=== PATIENT | female | born 1970 | race Caucasian/White ===

== ENCOUNTER 2018-10-27 14:08 | Emergency (ER) | payer MEDICAID ==
[~2018-10-27] VITALS: Ht 167.6 cm; Wt 65.0 kg
[2018-10-27 14:15] VITALS: BP 144/76; PULSE 76; RESP 20; Ht 167.6 cm; Wt 65.0 kg
--- NOTE | 2018-10-27 15:23 | ERD ---
ER Documentation Chief Complaint Chief Complaint Complains of severe headache x 3 days HPI 40-year-old female presents with history of headache since . States that the headache is been getting worse. States that the headache is positional. In addition states that she has been feeling dizzy and is nauseous but denies throwing up. Does not have any history of headache. States that last night she was unable to talk but only whisper. States that she has some numbness in her face. Denies past medical history. Denies allergies. Had cholecystectomy. Denies social. LMP October 10. ROS All systems reviewed and are negative except as per history of present illness. Medications Home Meds Active Scripts Ibuprofen* (Motrin*) 600 Mg Tab, 600 MG PO Q6 for headache, #30 TAB 0 Refills Prov:RIVERA MADSEN 10/27/18 Allergies Allergies: Coded Allergies: No Known Allergy (Unverified , 10/27/18) PMhx/Soc History of Surgery: Yes (CHOLECYSTECTOMY) Anesthesia Reaction: No Hx Neurological Disorder: No Hx Respiratory Disorders: No Hx Cardiac Disorders: No Hx Psychiatric Problems: No Hx Miscellaneous Medical Probl: No Hx Alcohol Use: No Hx Substance Use: No Hx Tobacco Use: No Smoking Status: Never smoker FmHx Family History: No diabetes, No coronary disease, No other Physical Exam Vitals Vital Signs Date Temp Pulse Resp B/P (MAP) Pulse Ox O2 O2 Flow FiO2 Time Delivery Rate 10/27/18 98.5 76 20 144/76 98 14:15 (98) Physical Exam General: Well developed, well nourished. No acute distress. Head: Atraumatic. No sinus tenderness to palpation. Eyes: No icterus, lesions, injection, or edema. Neck: No lymphadenopathy noted. Tracheal midline, no goiter or nodules noted. No JVD. No meningismus. Heart: RR w/o murmur, rubs, or gallops. Lungs: Clear to auscultation bilaterally w/o wheezes, crackles, rhonchi. Symmetric rise and fall. Equal breath sounds. Abdomen: Soft, nontender, with no rigidity or guarding noted. No masses, lesions, or ecchymoses. Normoactive bowel sounds. No McBurney's point tenderness. Patient ambulatory. No tenderness to palpation in splenic area or splenomegaly. No CVA tenderness. Neuro: CN II through XII intact. Rapid alternating movement intact. No cerebellar or gait deficits. Strength and sensation intact. Alert and oriented x3. Psych: Normal mood and affect. Result Diagram: 10/27/18 1531 10/27/18 1531 Results 24 hrs Laboratory Tests Test 10/27/18 15:31 10/27/18 15:32 White Blood Count 7.1 10^3/ul Red Blood Count 4.62 10^6/ul Hemoglobin 11.4 g/dl Hematocrit 35.7 % Mean Corpuscular Volume 77.3 fl Mean Corpuscular Hemoglobin 24.7 pg Mean Corpuscular Hemoglobin Concent 31.9 g/dl Red Cell Distribution Width 15.7 % Platelet Count 359 10^3/UL Mean Platelet Volume 9.5 fl Immature Granulocytes % 0.300 % Neutrophils % 55.8 % Lymphocytes % 32.9 % Monocytes % 8.6 % Eosinophils % 2.0 % Basophils % 0.4 % Nucleated Red Blood Cells % 0.0 /100WBC Immature Granulocytes # 0.020 10^3/ul Neutrophils # 4.0 10^3/ul Lymphocytes # 2.3 10^3/ul Monocytes # 0.6 10^3/ul Eosinophils # 0.1 10^3/ul Basophils # 0.0 10^3/ul Nucleated Red Blood Cells # 0.0 10^3/ul Erythrocyte Sedimentation Rate 15 mm/Hr Sodium Level 140 mmol/L Potassium Level 4.0 mmol/L Chloride Level 105 mmol/L Carbon Dioxide Level 27 mmol/L Anion Gap 8 Blood Urea Nitrogen 10 mg/dl Creatinine 0.52 mg/dl Est Glomerular Filtrat Rate mL/min > 60 mL/min Glucose Level 99 mg/dl Calcium Level 9.4 mg/dl Total Bilirubin 0.3 mg/dl Direct Bilirubin 0.00 mg/dl Indirect Bilirubin 0.3 mg/dl Aspartate Amino Transf (AST/SGOT) 34 IU/L Alanine Aminotransferase (ALT/SGPT) 33 IU/L Alkaline Phosphatase 96 IU/L Total Protein 7.4 g/dl Albumin 4.1 g/dl Globulin 3.30 g/dl Albumin/Globulin Ratio 1.24 POC Beta HCG, Qualitative NEGATIVE Procedures/MDM DIAGNOSTIC IMAGING REPORT Patient: DANNIELLE ACOSTA : 1970 Age: 48 Sex: F MR #: [id number] DOS: 10/27/18 1515 Ordering MD: RIVERA MADSEN Location: [facility] Room/Bed: PROCEDURE: CT Brain without contrast. CLINICAL INDICATION: Headache TECHNIQUE: A CT of the brain was performed on a multidetector CT scanner utilizing axial imaging from the skull base through the vertex without IV c ontrast. Multiplanar reformatted images were made. Images were reviewed on a PACS workstation. The CTDIvol is 39 mGy and the DLP is 634 mGycm. DICOM images are available. One or more of the following dose reduction techniques were utilized: 1.) Automated exposure control 2.) Adjustment of the mA +/- kV according to patient's size 3.) Use of iterative reconstruction technique. COMPARISON: None FINDINGS: There is no intracranial hemorrhage, mass effect, or midline shift. No extra-ax ial fluid collection is seen. The ventricles and sulci are normal in size and configuration. The density of the brain is normal, and the seals white matter differentiation appears well-preserved. There is normal aeration of the visualized paranasal sinuses. IMPRESSION: 1. No evidence of acute intracranial pathology. 2. The brain is normal in appearance. .Mateo Robbins MD, MD Date Time Electronically viewed and signed by .Mateo Robbins MD, MD on 10/27/2018 17:09 .A/ CC: RIVERA MADSEN [id number] ER Course: Head CT - WNL. CBC, CMP, ESR - WNL MDM: 40-year-old female presents with history of headache since . States that the headache is been getting worse. States that the headache is positional. In addition states that she has been feeling dizzy and is nauseous but denies throwing up. Does not have any history of headache. States that last night she was unable to talk but only whisper. States that she has some numbness in her face. Due patients age, new onset headache, focal neuroligical complaints, and positional exacerbation of headache, a head CT was ordered - was WNL. I have low suspicion for intercranial hemorrhage, elevated intercranial pressure, intercranial mass, aneurysm, meningitis, malignant hypertension, giant cell arteritis, infection, or other emergent causes of headache based on patients history and exam. Patient given rx for ibuprofin. Patient discharged with strict ER precautions. Patient advised to follow up with PMD. All questions answered at discharge. Departure Diagnosis: Primary Impression: Headache Headache type: unspecified Headache chronicity pattern: acute headache Intractability: intractable Qualified Codes: R51 - Headache Condition: Stable NOLBERTOZEINAB ALARCONEL Oct 27, 2018 15:23
[2018-10-27] MEDS ORDERED: IBUP-1542 PO (17:18)
== END 2018-10-27 17:35 | disposition home or self-care (01) ==
LOC: FTE 14:08
DX: R51 Headache (principal)
CPT/HCPCS: 36415; 70450; 80053; 81025; 85025; 85651